=== PATIENT | male | born 1960 ===

== ENCOUNTER 2023-04-09 13:42 | Emergency (ER) | payer MEDICARE, OTHER ==
[2023-04-09] MEDS ORDERED: Sodium Chloride 0.9% 10 ML Syringe FLUSH PRN (13:44)
[2023-04-09] MEDS ORDERED: Sodium Chloride 0.9% 1,000 ML IV ONE ×3 (13:46→15:23)
[2023-04-09] MEDS ORDERED: Ketorolac 30 MG/ML SDV IVPUSH ONE (13:57)
[2023-04-09] MEDS ORDERED: LORazepam 2 MG/ML SDV IVPUSH ONE ×4 (14:23→18:39)
[2023-04-09] MEDS ORDERED: cefTRIAXone 2 GM Vial IVPUSH ONE (14:56)
[2023-04-09] MEDS ORDERED: Ampicillin 2 GM Vial IVPUSH ONE (14:57)
[2023-04-09] MEDS ORDERED: Ampicillin/Sulbactam Na 3 GM in Sodium Chloride 0.9% 100 ML IV ONE (15:14)
[2023-04-09 15:26] LABS: APPEARANCE,URINE CLEAR (CLEAR); COLOR,URINE YELLOW (YELLOW)
[2023-04-09 15:28] LABS: HEMATOCRIT 44.5 % (40.0-54.0); HEMOGLOBIN 14.2 g/dL (14.0-18.0)
[2023-04-09 15:29] LABS: BASOPHILS PERCENT AUTO 0.2 % (0.0-1.0); EOSINOPHILS PERCENT AUTO 1.1 % (1.0-3.0); LYMPHOCYTES PERCENT AUTO 6.5 % (20.5-50.1); MEAN CORPUSCULAR HEMOGLOBIN 26.8 pg (27.0-34.0); MEAN CORPUSCULAR HGB CONC 31.9 g/dL (33.0-35.0); MONOCYTES PERCENT AUTO 4.3 % (2-8); NEUTROPHILS PERCENT AUTO 87.9 % (42.2-75.2); PLATELET COUNT,PLT 186 10^3/uL (150-450)
[2023-04-09 15:30] LABS: CARBON DIOXIDE,CO2 26 mmol/L (21-32); CHLORIDE,CL 102 mmol/L (98-107); GLUCOSE RANDOM 150 mg/dL (70-99); SODIUM,NA 138 mmol/L (136-145)
[2023-04-09 15:31] LABS: BILIRUBIN,URINE NEGATIVE (NEGATIVE); GLUCOSE,URINE 500 (NEGATIVE); KETONES,URINE 15 (NEGATIVE); PROTEIN,URINE TRACE (NEGATIVE)
[2023-04-09 15:31] LABS: BLOOD UREA NITROGEN,BUN 32 mg/dL (7-18); BUN/CREATININE RATIO 21.5 (No establ ref range); CREATININE 1.49 mg/dL (0.70-1.30)
[2023-04-09 15:32] LABS: A/G RATIO 0.95; ALBUMIN 3.6 g/dL (3.4-5.0); ALKALINE PHOSPHATASE 160 U/L (46-116); BILIRUBIN TOTAL 1.4 mg/dL (0.2-1.0); CALCIUM 9.3 mg/dL (8.5-10.1); ESTIMATED GFR 52 mL/min (>=60); MAGNESIUM 1.6 mg/dL (1.8-2.4); PROTEIN TOTAL,TP 7.4 g/dL (6.4-8.2)
[2023-04-09 15:32] LABS: LEUKOCYTE ESTERASE,URINE NEGATIVE (NEGATIVE); NITRITE,URINE NEGATIVE (NEGATIVE); OCCULT BLOOD,URINE TRACE-INTACT (NEGATIVE); UROBILINOGEN,URINE 0.2 mg/dL (0.2-1.0)
[2023-04-09 15:33] LABS: ALANINE AMINOTRANSFERASE,ALT 41 U/L (16-63); ASPARTATE AMNIOTRANSFERASE,AST 51 U/L (15-37); C-REACTIVE PROTEIN 3.14 ng/dL (<=0.50)
[2023-04-09 15:42] LABS: BACTERIA,URINE FEW /HPF; EPITHELIAL CELLS,URINE FEW /HPF; RBC,URINE 0-5 /HPF; WBC,URINE 0-5 /HPF; YEAST,URINE FEW /HPF
[2023-04-09] MEDS ORDERED: Norepinephrine Bit/D5W Premix 250 ML IV SCH (15:45)
[2023-04-09 15:54] LABS: GLUCOSE,CSF 79 mg/dL (40-70); PROTEIN,CSF 102 mg/dL (15-45)
[2023-04-09 15:56] LABS: APPEARANCE CSF CLEAR; COLOR,CSF COLORLESS; SUPERNATANT APPEAR,CSF NO XANTHOCHROMIA; TUBE NUMBER,CSF 2; TUBE VOLUME,CSF < 2
[2023-04-09 16:13] LABS: CORONAVIRUS COVID-19 NAA NEGATIVE (NEGATIVE); INFLUENZA A NAA NEGATIVE (NEGATIVE); INFLUENZA B NAA NEGATIVE (NEGATIVE)
[2023-04-09 16:23] LABS: RBC,CSF 20; WBC,CSF 4
[2023-04-09] MEDS ORDERED: Acetaminophen 325 MG Supp RECTAL ONE (17:47)
[2023-04-09] MEDS ORDERED: Acetaminophen 650 MG Supp RECTAL STA (17:48)
[2023-04-09] MEDS ORDERED: Piperacillin/Tazobactam 3.375 GM in Sodium Chloride 0.9% 100 ML IV ONE (18:00)
[2023-04-10 11:43] LABS: LACTIC ACID 1.7 mmol/L (0.4-2.0)
== END 2023-04-09 19:20 | disposition home or self-care (01) ==
LOC: EDSEX → DL.ED 13:42
DX: A41.9 Sepsis, unspecified organism (principal); I10 Essential (primary) hypertension; E11.9 Type 2 diabetes mellitus without complications; E78.5 Hyperlipidemia, unspecified; Z20.822 Contact with and (suspected) exposure to COVID-19; Z79.82 Long term (current) use of aspirin; Z79.84 Long term (current) use of oral hypoglycemic drugs; Z79.4 Long term (current) use of insulin; Z79.899 Other long term (current) drug therapy; Z88.6 Allergy status to analgesic agent; Z88.8 Allergy status to other drugs, medicaments and biological substances; Z88.7 Allergy status to serum and vaccine
CPT/HCPCS: 0240U; 36415; 70450; 70486; 71045; 80053; 81001; 82140; 82945; 83605; 83735; 84145; 84157; 85025; 86140; 87040; 87070; 87205; 89050; 96365; 96367; 96368; 96375; 96376; 99285; A9270; J0295; J0696; J1885; J2060; J2543; J3370; J3490; J7030; J7050